=== PATIENT | female | born 1945 | race Caucasian/White ===

== ENCOUNTER 2019-04-11 07:00 | Inpatient (IN) | payer MEDICARE ==
--- NOTE | 2019-04-04 12:44 | HP ---
AMENDED REPORT NOW INCLUDES DESIGNATED COSIGNER HISTORY AND PHYSICAL: DATE OF PROCEDURE: 04/11/19 PROVIDER: Dr. Myra Ozuna.* (DICTATED BY SARA QUEEN) HISTORY OF PRESENT ILLNESS: Mrs. Martinez is a 73-year-old female with right hip pain that has been ongoing for about 4 years. She failed conservative management with physical therapy, multiple intraarticular injections, antiinflammatories, and the use of a cane. She has developed pain, 6/10, severe in the right groin. She has difficulty ambulating more than a block. She would like to proceed with a right total hip arthroplasty to be performed by Dr. Myra Ozuna. PAST MEDICAL HISTORY: 1. Hypertension. 2. Heart disease. 3. Hypercholesterolemia. 4. Diabetes type 2. 5. Depression. 6. Anxiety. 7. Hypothyroidism. 8. Allergic rhinitis. 9. Osteoarthritis. 10. Scoliosis. PAST SURGICAL HISTORY: 1. Hemicolectomy. 2. Pituitary adenoma excision with craniotomy. 3. . 4. Breast lumpectomy. MEDICATIONS: 1. CoQ10 of 100 mg 1 cap p.o. 3 times a week. 2. Crestor 5 mg half a tab p.o. 3 times a week. 3. Fluoxetine 20 mg 1 tab p.o. daily. 4. Levothyroxine 175 mcg 1 tab p.o. q.a.m. 5. Valsartan 160 mg 1 tab p.o. daily. 6. Metformin 500 mg. 7. Vitamin B12. ALLERGIES: PENICILLIN causes hives. EKG GEL causes skin sensitivity. FAMILY HISTORY: Maternal, cancer and heart disease. SOCIAL HISTORY: The patient lives alone at [facility]. 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 She has 12 alcoholic beverages per week. These consist of 8 ounce glasses of white wine. Denies any tobacco or recreational drug use. She is normally active with walking and swimming. She is right hand dominant. REVIEW OF SYSTEMS: The patient denies any fevers, chills, or night sweats. No known anesthesia problems. HEENT: The patient denies any headache or lightheadedness. Cardiothoracic: The patient denies any chest pain or heart palpitations. Pulmonary: The patient denies any shortness of breath, chronic cough. GI: The patient denies any nausea, vomiting, diarrhea, or constipation. : The patient denies any nocturia, urinary frequency, or urgency. MSK: Admits to chronic back pain due to scoliosis. Neuro: Denies any paresthesias or numbness. Integument: Denies any abrasions, rashes, or lesions. PHYSICAL EXAMINATION GENERAL: The patient is alert and oriented x3, appropriate mood and affect, appropriate dressing and hygiene, in no acute distress. VITAL SIGNS: Normocephalic and atraumatic. Hearing and vision grossly intact. PULMONARY: Lungs are clear to auscultation bilaterally with no wheezes, rales, or rhonchi. CARDIO: Regular rate and rhythm. Normal S1 and S2. No appreciable S3 or S4. No murmurs, rubs, or gallops. MSK: Right lower extremity: Inspection of the right hip reveals no erythema or ecchymoses. Skin is warm, dry, and intact. There are no abrasions or open wounds. No palpable masses or lymph nodes. Flexion of the hip to 90 degrees with groin pain, 0 degrees of internal rotation, 20 degrees of external rotation , both with pain. She has a negative log roll. No tenderness to palpation over the greater troch. Full sensation intact to light touch distally and 2+ dorsalis pedis pulse. IMPRESSION: Right hip osteoarthritis, end-stage, severe. PLAN/RECOMMENDATIONS: To the OR for a right total hip arthroplasty to be performed on 04/11/[address] Ozuna. The risks and complications were reviewed with the patient. She will follow up in 10 to 14 days postop for suture removal. SARA QUEEN [id number]/[facility] #: [id number] [facility]OSPITALAlva
[~2019-04-11 07:00] MED LIST: Buffered Lidocaine 1% SYRIN* 1 ML/SYRINGE INTRADERM ONE; Lactated Ringers 1000 ML Bag* 1,000 ML IV SCH; Tranexamic Acid 1,000 MG in NS 0.9% 50 ML* (outpatient use) IV SCH
--- OUTSIDE RECORDS SUMMARY | 2019-04-11 07:04 | XMS REPORT | Continuity of Care Document ---
:1945 External Reference #:[id number] Author Name Jerry Jessie Care Team Providers Name Role Phone Mary Plaza MD Primary Care Physician Unavailable Payers Date Identification Numbers Payment Provider Subscriber Policy Number: [id number] Medicare Frida Martinez PayID: [id number] [address] [place] [address] Policy Number: [id number] [facility] Frida Martinez PayID: [id number] [address] [place] [address] Advance Directives Description No Information Available Problems Date Description Provider Status Onset: 11/27/2016 Type 2 diabetes mellitus Mary Jon, N.P. Active Onset: 11/27/2016 Mild recurrent major depression Mary Jon, N.P. Active Onset: 11/27/2016 Chronic ischemic heart disease Mary Jon, N.P. Active Onset: 11/27/2016 Hypothyroidism Mary Jon, N.P. Active Onset: 11/27/2016 Seasonal allergic rhinitis Mary Jon, N.P. Active Onset: 03/13/2019 Localized, primary osteoarthritis of Myra Ozuna M.D. 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 times a day as needed Aspirin Adult / Active Tablets DR 81mg 1 tab po Unknown Low Strength 0000 qd Co Q 10 / Active Capsules 100mg take one Unknown 0000 cap po three times a week with crestor Crestor / Active Tablets 5mg 1/2 tab Unknown 0000 po three times a week Fluocinonide / Active Cream 0.05% prn Unknown 0000 Fluoxetine HCL / Active Tablets 20mg 1 tab po Unknown 0000 qd Levothyroxine / Active Tablets 175mcg 1 tab po Unknown Sodium 0000 qam Valsartan / Active Tablets 160mg 1 tab po Unknown 0000 qd Metformin HCL / Active Tablets 500mg Unknown 0000 Vitamin B12 / Active Unknown 0000 Prednisone 12/04/ Hx Tablets 10mg 26tabs 5 tabs x2 J20.9 Mary 2016 - day, 4 Dontrell, 03/12/ tabs x N.P. 2019 2day, 3 tabs x 1 day, 2 tabs x1day, 1 tab x 1day Proair HFA 12/04/ Hx Aerosol 108(90Base 1inhal 2 puffs J20.9 Mary 2017 - ) mcg/Act er inhaled Dontrell, 12/04/ every 4 N.P. 2017 to 6 hours as needed Azithromycin 12/01/ Hx Tablets 250mg 6tabs 2 tabs po J20.9 Mary 2017 - qd x1 Dontrell, 03/12/ day, 1 N.P. 2019 tab po qd x 4 days Alavert / Hx Tablets ER 5-120mg prn Unknown Allergy/Sinus 0000 - 12HR 2018 Zetia / Hx Tablets 10mg 1 tab po Unknown 0000 - qd 2015 Immunizations Description No Information Available Vital Signs Date Vital Result Comment 03/13/2019 1:55pm Height 62 inches 5'2" Weight 209.00 lb Heart Rate 74 /min BP Systolic 138 mmHg BP Diastolic 88 mmHg Respiratory Rate 18 /min Body Temperature 98.4 F Pain Level 6 BMI (Body Mass Index) 38.2 kg/m2 12/16/2017 11:22am Heart Rate 70 /min BP Systolic 146 mmHg BP Diastolic 76 mmHg Respiratory Rate 16 /min Body Temperature 98.8 F O2 % BldC Oximetry 96 % 12/02/2017 11:26am Height 62 inches 5'2" Weight 202.00 lb BP Systolic 132 mmHg BP Diastolic 69 mmHg Respiratory Rate 17 /min Pain Level 6 BMI (Body Mass Index) 36.9 kg/m2 12/04/2016 10:40am Weight 203.12 lb Heart Rate 72 /min BP Systolic Sitting 148 mmHg BP Diastolic Sitting 68 mmHg Respiratory Rate 18 /min Body Temperature 98.4 F O2 % BldC Oximetry 95 % 12/01/2016 10:06am Weight 203.00 lb Heart Rate 75 /min BP Systolic Sitting 140 mmHg BP Diastolic Sitting 80 mmHg Respiratory Rate 16 /min Body Temperature 98.7 F O2 % BldC Oximetry 95 % 11/27/2016 8:13am Weight 203.38 lb Heart Rate 94 /min BP Systolic Sitting 140 mmHg BP Diastolic Sitting 72 mmHg Respiratory Rate 16 /min O2 % BldC Oximetry 97 % Results Description No Information Available Procedures Date Code Description Status 02/23/2019 77756 Treadmill Interp/Report Only Completed 02/23/2019 08846 Stress Test Supervsn W/Out I/R Completed 02/17/2019 87105 ECHO Transthoracic, Real-Time 2D With Doppler And Color Completed Flow 02/17/2019 30037 ECHO Transthoracic, Real-Time 2D With Doppler And Color Completed Flow 11/08/2015 53539 ECHO Transthoracic, Real-Time 2D With Doppler And Color Completed Flow Encounters Type Date Location Provider Dx Diagnosis Office Visit 12/16/2017 [facility] Arleen Glasgow, H81.12 Benign paroxysmal 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 unspecified Office Visit 12/01/2016 10:39a Fatemeh Jon, J20.9 Acute bronchitis, Home N.P. unspecified R10.9 Unspecified abdominal pain Office Visit 11/27/2016 8:37a Fatemeh Jon, J20.9 Acute bronchitis, Home N.P. unspecified Plan of Treatment Future Appointment(s):03/31/2019 10:00 am - Myra Ozuna M.D. at [facility]03/13/2019 - Myra Ozuna M.D.M25.551 Pain in right hipNew Xrays:Hip Right 2 Views And Pelvis 40564 - 79579, Ordered: 03/13/19Follow up: Follow up: 7-10 days before vzwzavpP32.11 Unilateral primary osteoarthritis, right hip
--- OUTSIDE RECORDS SUMMARY | 2019-04-11 07:04 | XMS REPORT | Continuity of Care Document ---
:1945 External Reference #:[id number] Author Name Abby Polanco Care Team Providers Name Role Phone Mary Plaza MD Primary Care Physician Unavailable Payers Date Identification Numbers Payment Provider Subscriber Policy Number: [id number] Medicare Frida Martinez PayID: [id number] [address] [place] [address] Policy Number: [id number] [facility] Frida Martinez PayID: [id number] [address] [place] [address] Advance Directives Description No Information Available Problems Active Problems Provider Date Type 2 diabetes mellitus Mary Jon, N.P. Onset: 11/27/2016 Mild recurrent major depression Mary Jon, N.P. Onset: 11/27/2016 Chronic ischemic heart disease Mary Jon, N.P. Onset: 11/27/2016 Hypothyroidism Mary Jon, N.P. Onset: 11/27/2016 Seasonal allergic rhinitis Mary Jon, N.P. Onset: 11/27/2016 Localized, primary osteoarthritis of the Myra Ozuna M.D. 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 Currently consumes alcohol Tobacco Use Start: Unknown End: Patient is a former smoker Unknown Smoking Status Reviewed: 03/31/19 Patient is a former smoker Exercise Type/Frequency Exercises sporadically Allergies, Adverse Reactions, Alerts Active Allergies Reaction Severity Comments Date Penicillins 11/27/2016 EKG Gel 03/31/2019 Medications Active Medications SIG Qnty Indications Ordering Provider Date Co Q 10 take one cap po Unknown 100mg Capsules three times a week with crestor Crestor 1/2 tab po three Unknown 5mg Tablets times a week Fluocinonide prn Unknown 0.05% Cream Fluoxetine HCL 1 tab po qd Unknown 20mg Tablets Levothyroxine Sodium 1 tab po qam Unknown 175mcg Tablets Valsartan 1 tab po qd Unknown 160mg Tablets Metformin HCL Unknown 500mg Tablets Vitamin B12 Unknown History Medications Prednisone 5 tabs x2 day, 26tabs J20.9 Marydebra Jon, 12/04/2016 - 10mg 4 tabs x 2day, N.P. 03/12/2019 Tablets 3 tabs x 1 day, 2 tabs x1day, 1 tab x 1day Proair HFA 2 puffs inhaled 1inhaler J20.9 Mary Jon, 12/04/2016 - every 4 to 6 N.P. 12/04/2016 108(90Base) mcg/Act hours as needed Aerosol Ventolin HFA 2 puffs by 1units J20.9 Mary Jon, 12/04/2016 - mouth four N.P. 03/30/2019 108(90Base) mcg/Act times a day as Aerosol needed Azithromycin 2 tabs po qd x1 6tabs J20.9 Mary Jon, 12/01/2016 - 250mg day, 1 tab po N.P. 03/12/2019 Tablets qd x 4 days Alavert prn Unknown - Allergy/Sinus 03/12/2019 5-120mg Tablets ER 12HR Aspirin Adult Low 1 tab po qd Unknown - Strength 03/30/[address] Harry 1 tab po qd Unknown - 10mg Tablets 11/27/2016 Immunizations Description No Information Available Vital Signs Date Vital Result Comment 03/31/2019 10:30am Height 62 inches 5'2" Weight 210.00 lb Heart Rate 68 /min BP Systolic 140 mmHg BP Diastolic 78 mmHg BMI (Body Mass Index) 38.4 kg/m2 03/13/2019 1:55pm Height 62 inches 5'2" Weight [...] Available Procedures Date Code Description Status 02/23/2019 49658 Treadmill Interp/Report Only Completed 02/23/2019 57049 Stress Test Supervsn W/Out I/R Completed 02/17/2019 66851 ECHO Transthoracic, Real-Time 2D With Doppler And Color Completed Flow 02/17/2019 21640 ECHO Transthoracic, Real-Time 2D With Doppler And Color Completed Flow 11/08/2015 01091 ECHO Transthoracic, Real-Time 2D With Doppler And Color Completed Flow Encounters Type Date Location Provider Dx Diagnosis Office Visit 03/13/2019 Orthopedic Myra Ozuna M25.551 Pain in right hip 1:30p Services Of Fadumo Miller M16.11 Unilateral primary osteoarthritis, right hip Office Visit 12/16/2017 11:33a [facility] Arleen Glasgow, H81.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, 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 unspecified Office Visit 12/01/2016 10:39a [employer] [facility] Mary Paulsonbull, J20.9 Acute bronchitis, Home N.P. unspecified R10.9 Unspecified abdominal pain Office Visit 11/27/2016 8:37a Fatemeh Paulsonbull, J20.9 Acute bronchitis, Home N.P. unspecified Plan of Treatment Future Appointment(s):04/21/2019 10:30 am - Myra Ozuna M.D. at [facility]04/11/2019 11:45 am - Ashkan Ray PA-C at [facility]04/11/2019 11:45 am - SARA Nunez at [facility]04/11/2019 11:45 am - Myra Ozuna M.D. at [facility]03/31/2019 - Myra Ozuna M.D.M25.551 Pain in right hipFollow up:Follow up: 2 weeks after [id number] Unilateral primary osteoarthritis, right hip
[2019-04-11] MEDS ORDERED: Propofol* 10 MG/ML 20 ML BTL ONE (07:16)
[2019-04-11] MEDS ORDERED: Bupivacaine 0.5% SDV PF* 30ML VIAL ONE (07:17)
[2019-04-11] MEDS ORDERED: Lidocaine 2% PF * 5 ML VIAL ONE (07:17)
[2019-04-11] MEDS ORDERED: Propofol* 500 MG/50 ML BTL ONE (07:17)
[2019-04-11] MEDS ORDERED: ROPIVACAINE 5 MG/ML 30 ML BTL (0.5%) ONE (07:17)
[2019-04-11] MEDS ORDERED: Dexmedetomidine* 200 MCG/2 ML 2 ML VIAL ONE (07:18)
[2019-04-11] MEDS ORDERED: Clindamycin 900 MG IVPREMIX(* 900 MG/50 ML SDV IV ONE (07:44)
[2019-04-11] MEDS ORDERED: Buffered Lidocaine 1% SYRIN* 1 ML/SYRINGE INTRADERM ONE (07:44)
[2019-04-11] MEDS ORDERED: KETAMINE HCL* 50 MG/ML 10 ML VIAL ONE (08:06)
[2019-04-11] MEDS ORDERED: Midazolam* 1 MG/ML 2 ML VIAL (2 MG) ONE ×2 (08:06→09:38)
[2019-04-11] MEDS ORDERED: Dexamethasone IV* 4 MG/ML 1 ML (4 MG) ONE (10:30)
[2019-04-11] MEDS ORDERED: EPHEDrine (Pressors)* 50 MG/ML VIAL ONE (10:32)
[2019-04-11] MEDS ORDERED: Acetaminophen TAB* 325 MG PO PRN (11:28)
[2019-04-11] MEDS ORDERED: Naloxone* 0.4 MG/ML 1 ML VIAL IV PRN (11:28)
[2019-04-11] MEDS ORDERED: Ketorolac INJ* 30 MG/ML 1 ML VIAL IV PRN (11:28)
[2019-04-11] MEDS ORDERED: Ondansetron INJ* 2 MG/ML VIAL IV PRN ×2 (11:28→12:23)
[2019-04-11] MEDS ORDERED: oxyCODONE TAB* 5 MG TAB PO PRN (11:28)
[2019-04-11] MEDS ORDERED: Morphine INJ* 2 MG/ML 1 ML SYRINGE (TWO MG - NEW SYRINGE VERSION) IV PRN (12:23)
[2019-04-11] MEDS ORDERED: Polyethylene Glycol 3350* 17 GM PACKET PO PRN (12:23)
[2019-04-11] MEDS ORDERED: Ondansetron TAB* 4 MG PO PRN (12:23)
[2019-04-11] MEDS ORDERED: Magnesium Hydroxide LIQ* 30 ML UDC PO PRN (12:23)
[2019-04-11] MEDS ORDERED: Cyclobenzaprine TAB* 10 MG PO PRN (12:23)
[2019-04-11] MEDS ORDERED: Bisacodyl SUPP* 10 MG SUPP PR PRN (12:23)
[2019-04-11] MEDS ORDERED: diPHENhydraMINE IV* 50 MG/ML 1 ml VIAL (BENADRYL) IV PRN (12:23)
[2019-04-11] MEDS ORDERED: oxyCODONE/Acetamin 5/325 MG* TAB PO PRN (12:23)
[2019-04-11] MEDS ORDERED: Cetirizine* 10 MG TAB PO PRN (12:27)
[2019-04-11] MEDS ORDERED: Acetaminophen TAB* 325 MG ONE (13:09)
[2019-04-11] MEDS ORDERED: Ketorolac INJ* 30 MG/ML 1 ML VIAL ONE (13:09)
[2019-04-11] MEDS ORDERED: HYDROmorphone INJ1* 1 MG/ML SYRINGE ONE (13:21)
[2019-04-11] MEDS: HYDROmorphone INJ1* 1 MG/ML SYRINGE IV PRN ×4 (13:22→13:45)
[2019-04-11] MEDS: Lactated Ringers 1000 ML Bag* 1,000 ML IV SCH (14:25)
[2019-04-11] MEDS ORDERED: Dextrose 50% Syringe 50 ML* 25 GM/50 ML SYRINGE IV PUSH PRN (14:56)
[2019-04-11] MEDS: oxyCODONE TAB* 5 MG TAB PO PRN (15:52)
[2019-04-11] MEDS: Nicotine GUM* 2 MG PO SCH ×4 (16:02→22:22)
--- NOTE | 2019-04-11 16:04 | CONS ---
CC: Dr. Mary Plaza; Dr. Ozuna * CONSULTATION REPORT: DATE OF CONSULT: 04/11/19 TIME OF EVALUATION: 2:20 p.m. PRIMARY CARE PROVIDER: Dr. Mary Plaza. REQUESTING PHYSICIAN: Dr. Ozuna. REASON FOR CONSULTATION: Management of comorbidities. HISTORY OF PRESENT ILLNESS: Mrs. Martinez is a 73-year-old female with a past medical history of coronary artery disease, depression, type 2 diabetes, hyperlipidemia, hypothyroidism, obesity, who was seen by Dr. Ozuna as outpatient with right hip pain that failed conservative measures. She was admitted for an elective right total hip arthroplasty, that was performed by Dr. Ozuna on 04/11/19 without any reported complications. The hospitalist service was consulted to assist with management of comorbidities. She is evaluated soon after her admission to [facility] and at this time, she offers no complaint. She states that her pain is well controlled. There is no chest pain, palpitations, shortness of breath. PAST MEDICAL HISTORY: 1. Type 2 diabetes. 2. Hyperlipidemia. 3. Aortic stenosis. 4. Hypothyroidism. 5. Hypertension. PAST SURGICAL HISTORY: 1. Status post in 1977. 2. Benign breast cyst excision in 1964. 3. Hemicolectomy for polyps in 2012. 4. Pituitary adenoma removal via transsphenoidal approach in 1987. MEDICATION LIST: 1. Aspirin 81 mg p.o. daily. 2. CoQ10 100 mg p.o. daily. 3. Fluoxetine 20 mg p.o. daily. 4. Levocetirizine 5 mg p.o. daily as needed for allergies. 5. Levothyroxine 175 mcg p.o. daily before breakfast. 6. Metformin 500 mg p.o. daily. 7. Rosuvastatin 2.5 mg p.o. 3 times a week. 8. Valsartan 160 mg p.o. daily. ALLERGIES: With PENICILLIN, the patient had hives. FAMILY HISTORY: Reviewed, noncontributory. SOCIAL HISTORY: The patient is a . She has a 21-waeq-pseb history of smoking, but has quit and drinks alcohol socially. REVIEW OF SYSTEMS: A 14-point review of system was performed and all the pertinent negatives are in the HPI. PHYSICAL EXAM: Vital Signs: Temperature 98.4, heart rate is 66, respiratory rate is 15, oxygen saturation is 92% on room air, blood pressure is 147/69. General: The patient is a pleasant obese elderly lady, lying in bed, in no acute distress. HEENT: Pupils are equal. Moist mucous membranes. CVS: Normal S1, S2. Regular rate and rhythm with no systolic murmur. Chest: Breath sounds present bilaterally with no added sounds. Abdomen: Obese, bowel sounds are present. Extremities: The patient has an abductor pillow in place with a clean dressing to her right hip. ASSESSMENT AND PLAN: Mrs. Martinez is a 73-year-old lady with a past medical history of hypertension, hyperlipidemia, type 2 diabetes, depression, anxiety, hypothyroidism, osteoarthritis, scoliosis, aortic stenosis, who is admitted for elective right total hip replacement. 1. Right total hip replacement. Management as per orthopedist. 2. Type 2 diabetes. The patient will have fingersticks a.c. and h.s. with lispro sliding scale and we will resume her metformin . 3. Hypertension, is controlled. We will continue valsartan with holding parameters. 4. Hyperlipidemia. Continue rosuvastatin. 5. DVT prophylaxis. It will be with Eliquis as per orthopedist. 6. Code status is full. TIME SPENT: Approximately 45 minutes was spent with patient interview, medical records, review of physical examination to complete this consultation, more than half of this time was spent [id number] with the patient in coordination of care. [id number]/[facility] #: [id number] DIANA
[2019-04-11] MEDS: oxyCODONE/Acetamin 5/325 MG* TAB PO PRN ×2 (17:31→22:21)
[2019-04-11] MEDS: Clindamycin 600 MG IVPREMIX(* 600 MG/50 ML SDV IV SCH (17:41)
--- NOTE | 2019-04-11 18:26 | OP ---
Operative Report - Blank - Operative Report Date of Operation: 04/11/19 Note: SU SKINNER 1945 Date Of Surgery: 04/11/19 Myra Ozuna MD Manager Gas: Margarita RUIZ did help throughout the procedure with preparation of the hip, wound retraction, manipulation of the hip, and wound closure. Anesthesiologist: Dr. Shields Anesthesia Type: Spinal Preoperative Diagnosis: Right severe degenerative osteoarthritis of the hip Postoperative Diagnosis: As above Procedure Performed: Right Total Hip Arthroplasty Complications: None Specimen: Femoral head and acetabular reamings sent to pathology. Hardware used: This is uncemented Keri total hip arthroplasty hardware for the femur a size 2 accolade II with 127 degree neck femoral component, for the acetabulum a size 46 C trident II tritanium cluster hole shell, a single 15 mm 6.5 screw, for the insert a size 36C MDM cementless liner, a 22.2/36/36C MDM x3 insert, and for the femoral head a size 22.2 + 0 LFIT metal V40 femoral head. Brief history/Indication: SU SKINNER was known in clinic and had a history of severe riht hip pain. She failed conservative treatment with anti- inflammatories, pain pills, intra-articular injections and physical therapy. She elected to undergo right total hip arthroplasty due to continued pain and decreased quality of life. Radiographs showed severe end stage osteoarthritis of the hip with bone on bone contact. Informed consent was obtained from the patient. She understood the risks of surgery included but were not limited to: bleeding, infection, damage to nearby structures, intraoperative fracture, nerve palsy, failure of the hardware, early loosening, stiffness or loss of motion, dislocation, leg length discrepancy, anesthesia complications, stroke, heart attack, blood clot and . She wished to proceed. Intra-Operative findings: Intraoperatively the patient was noted to have severe loss of cartilage of the acetabulum and femoral head. Her muscles were noted to have entensive atrophy and laxity. Description of the Procedure: SU SKINNER was identified in the preanesthesia unit. Her right hip was marked as the correct operative side. Informed consent was signed and placed in the chart. The patient was taken to the operating room and placed under anesthesia without complication. A cohen catheter was placed. The patient was placed on the peg board with all bony prominences well padded. The right lower extremity was prepped and draped in the usual sterile fashion. Preoperative time -out was made to correctly identify the patient, side and site. Appropriate intraoperative antibiotics were given within one hour of incision. A standard posterior incision was made and carried sharply down to the lateral fascia. A new 10 blade was used to make an incision in the fascia in line with the skin incision. A charnley retractor was placed. The piriformis and conjoined tendons were identified and elevated off the posterolateral femur using electrocautery. These were tagged with number 5 Ethibond. Next electrocautery was used to make a posterolateral capsular flap and this was tagged with number 5 Ethibonds. The hip was carefully dislocated. Lesser trochanter to the center of the femoral head was measured at 58 mm. The oscillating saw was used to make the femoral neck cut. The femoral head was carefully removed. The femur was retracted anteriorly and the acetabular retractors were placed. Long-handled knife was used to sharply remove any remaining labrum from the acetabular rim. The acetabulum was sequentially reamed up to a size 45. A bleeding subchondral bone bed was obtained. A trial cup was placed and had excellent fit and stability. A 46C trident II tritanium cluster hole cup was placed and had excellent stability with appropriate anteversion and abduction angle. A single 15 mm screw was placed for extra stability. A size 36C MDM cementless liner was impacted into the acetabular shell. The liner was checked for stability and was stable. Next attention was turned to preparation of the femoral canal. A canal finder was used to enter the proximal femur. The femoral canal was sequentially broached up to a size 2 femoral broach trial. A trial neck and 22.0 + 0 / 36C trial femoral head and MDM insert was chosen. Lesser trochanter to center of the femoral head measurement was satisfactory. The hip was reduced and taken through a range of motion. The hip was stable in all positions with good soft tissue tension and appropriate leg lengths. The hip was dislocated and all trials were removed. The final implant chosen was a size 2 accolade II with 127 degree neck. This stem was impacted into the femoral canal without difficulty. The stem was stable with appropriate anteversion. The femoral head chosen was a 22.2+ 0 with a 22.2/36C MDM X3 insert. The head was impacted onto the femoral neck without difficulty. The final lesser trochanter to center of the femoral head measurement was satisfactory. The hip was reduced and taken through a range of motion. The hip was stable in all positions with good soft tissue tension and appropriate leg lengths. The hip was copiously irrigated with sterile saline. The previously tagged capsule and tendons were repaired to the posterolateral femur through two trochanteric drill holes. The lateral fascia layer was closed using number 1 vicryls. The rest of the incision was closed in a layered fashion using 0 and 2-0 vicryls. The skin was closed using 3-0 monocryl suture and Dermabond. Sterile adaptic, 4x4s and paper tape was used to cover the incision. The patients anesthesia was reversed without difficulty. She was taken to the PACU in stable condition. Intended weight-bearing will be as tolerated with posterior hip precautions.
[2019-04-11] MEDS: Insulin LISPRO* 1 UNITS UNIT SUBCUT SCH ×2 (18:29→22:22)
[2019-04-11] MEDS: Docusate CAP* 100 MG PO SCH (22:20)
[2019-04-11] MEDS: Magnesium Hydroxide LIQ* 30 ML UDC PO SCH (22:21)
[2019-04-11] MEDS: Acetaminophen TAB* 325 MG PO SCH (22:42)
[2019-04-12] MEDS: Nicotine GUM* 2 MG PO SCH ×12 (00:12→21:43)
[2019-04-12] MEDS: oxyCODONE TAB* 5 MG TAB PO PRN ×4 (00:31→19:31)
[2019-04-12] MEDS: Lactated Ringers 1000 ML Bag* 1,000 ML IV SCH (01:59)
[2019-04-12] MEDS: Clindamycin 600 MG IVPREMIX(* 600 MG/50 ML SDV IV SCH ×2 (02:00→11:23)
[2019-04-12] MEDS: oxyCODONE/Acetamin 5/325 MG* TAB PO PRN ×3 (03:17→21:35)
[2019-04-12] MEDS: Acetaminophen TAB* 325 MG PO SCH ×3 (05:38→21:44)
[2019-04-12 05:42] LABS: Hematocrit 34 % (35-47); Hemoglobin 11.2 g/dL (12.0-16.0); Mean Platelet Volume 7.5 fL (7.4-10.4); Platelet Count 189 10^3/uL (150-450)
[2019-04-12 06:03] LABS: BUN/Creatinine Ratio 16.4 (8-20); Calcium 8.9 mg/dL (8.6-10.3); EGFR African American 104.4 (>60); EGFR Non-African American 86.3 (>60); Potassium 4.2 mmol/L (3.5-5.0)
[2019-04-12] MEDS: Levothyroxine TAB* 175 MCG TAB PO SCH (06:25)
[2019-04-12] MEDS: Docusate CAP* 100 MG PO SCH ×2 (08:02→21:34)
[2019-04-12] MEDS: metFORMIN* 500 MG TAB PO SCH (08:03)
[2019-04-12] MEDS: FLUoxetine CAP* 20 MG PO SCH (08:03)
[2019-04-12] MEDS: Valsartan TAB* 160 MG PO SCH (08:03)
[2019-04-12] MEDS: Apixaban* 2.5 MG TAB PO SCH ×2 (08:03→21:34)
[2019-04-12] MEDS: Insulin LISPRO* 1 UNITS UNIT SUBCUT SCH ×4 (08:04→21:40)
[2019-04-12] MEDS: Magnesium Hydroxide LIQ* 30 ML UDC PO SCH ×2 (08:04→21:33)
[2019-04-12] MEDS ORDERED: CMCS:Rosuvastatin (NF) 5 MG TAB PO SCH (09:00)
[2019-04-12] MEDS ORDERED: Valsartan TAB* 160 MG PO SCH (09:00)
--- NOTE | 2019-04-12 10:36 | PN ---
Progress Note - Progress Note Date of Service: 04/12/19 SOAP: Subjective: []Pt seen at bedside POD 1 sp RTH. She feels well, hip pain is sore but tolerable. Denies CP, SOB, dizziness, nausea Objective: []General: Appears well, NAD RLE: Hip dressing CDI, thigh soft, DF/PF intact, sensation intact to light touch , DP2+ Calves supple and nontender without erythema, edema or palpable cords Assessment: []POD 1 SP RTH Plan: []WBAT PT/OT. Posterior hip precautions eliquis 2.5 mg po BID x 30 days post op Lives at [facility], Plan is for PM or T house, likely tomorrow Vital Signs Temp 98.3 F 04/12/19 07:21 Pulse 67 04/12/19 07:21 Resp 16 04/12/19 10:35 BP 142/69 04/12/19 07:21 Pulse Ox 97 04/12/19 08:00 Intake & Output 04/11/19 04/12/19 04/12/19 18:59 06:59 18:59 Intake Total 2225 1120 470 Output Total 500 1005 75 Balance 1725 115 395 Weight 212 lb Intake: IV Fluids 100 CLINDAMYCIN 900MG IN 50ML 50 NS TXA 1GM IN 50ML NS 50 Oral 2125 1120 470 Output: Urine 75 Reddy 500 1005 Laboratory Last Values Hgb 11.2 g/dL (12.0-16.0) L 04/12/19 04:58 Hct 34 % (35-47) L 04/12/19 04:58 Plt Count 189 10^3/uL (150-450) 04/12/19 04:58 MPV 7.5 fL (7.4-10.4) 04/12/19 04:58 Sodium 135 mmol/L (135-145) 04/12/19 04:58 Potassium 4.2 mmol/L (3.5-5.0) 04/12/19 04:58 Chloride 102 mmol/L (101-111) 04/12/19 04:58 Carbon Dioxide 27 mmol/L (22-32) 04/12/19 04:58 Anion Gap 6 mmol/L (2-11) 04/12/19 04:58 BUN 11 mg/dL (6-24) 04/12/19 04:58 Creatinine 0.67 mg/dL (0.51-0.95) 04/12/19 04:58 Est GFR ( Amer) 104.4 (>60) 04/12/19 04:58 Est GFR (Non-Af Amer) 86.3 (>60) 04/12/19 04:58 BUN/Creatinine Ratio 16.4 (8-20) 04/12/19 04:58 Glucose 156 mg/dL (70-100) H 04/12/19 04:58 POC Glucose (mg/dL) 147 mg/dL (70-100) H 04/12/19 07:50 Calcium 8.9 mg/dL (8.6-10.3) 04/12/19 04:58
[2019-04-12] MEDS: traMADol TAB* 50 MG PO PRN (13:16)
--- NOTE | 2019-04-12 14:37 | PN ---
Subjective Date of Service: 04/12/19 Interval History: HOSPITALIST PROGRESS NOTE Patient seen and examined at bedside. Care reviewed and d/w Mary Bateman RN. She feels well today; pain is well controlled, denies N/V. Able to work with PT today with no issues. Family History: Unchanged from Admission Social History: Unchanged from Admission Past Medical History: Unchanged from Admission Objective Active Medications: Acetaminophen (Tylenol Tab*) 975 mg PO Q8HR [facility] Last Admin: 04/12/19 13:12 Dose: Not Given Apixaban (Eliquis*) 2.5 mg PO BID [facility] Last Admin: 04/12/19 08:03 Dose: 2.5 mg Bisacodyl (Dulcolax Supp*) 10 mg OR DAILY PRN PRN Reason: constipation Cetirizine HCl (Zyrtec*) 10 mg PO DAILY PRN PRN Reason: Allergy Symptoms Cyclobenzaprine HCl (Flexeril Tab*) 10 mg PO TID PRN PRN Reason: SPASMS Dextrose (D50w Syringe 50 Ml*) 12.5 gm IV PUSH .FOR FS < 60 - SS PRN PRN Reason: FS < 60 Diphenhydramine HCl (Benadryl Iv*) 12.5 mg IV Q6H PRN PRN Reason: PRURITIS Docusate Sodium (Colace Cap*) 100 mg PO BID [facility] Last Admin: 04/12/19 08:02 Dose: 100 mg Fluoxetine HCl (Prozac Cap*) 40 mg PO QAM [facility] Last Admin: 04/12/19 08:03 Dose: 40 mg Lactated Ringer's (Lactated Ringers 1000 Ml Bag*) 1,000 mls @ 100 mls/hr IV PER RATE [facility] Last Admin: 04/12/19 01:59 Dose: 100 mls/hr Insulin Human Lispro (Humalog*) 0 units SUBCUT ACHS [facility]; Protocol Last Admin: 04/12/19 13:10 Dose: 2 unit Lactulose (Lactulose*) 30 ml PO Q6H PRN PRN Reason: constipation Levothyroxine Sodium (Synthroid Tab*) 175 mcg PO QAM@0600 [facility] Last Admin: 04/12/19 06:25 Dose: 175 mcg Magnesium Hydroxide (Milk Of Magnesia Liq*) 30 ml PO BID [facility] Last Admin: 04/12/19 08:04 Dose: 30 ml Magnesium Hydroxide (Milk Of Magnesia Liq*) 30 ml PO Q6H PRN PRN Reason: constipation Metformin HCl (Glucophage*) 500 mg PO [facility] Last Admin: 04/12/19 08:03 Dose: 500 mg Morphine Sulfate (Morphine Inj (Syringe))*) 2 mg IV Q2H PRN PRN Reason: PAIN Nicotine Polacrilex (Nicotine Gum*) 2 mg PO Q2H [facility] Last Admin: 04/12/19 13:12 Dose: Not Given Ondansetron HCl (Zofran Inj*) 4 mg IV Q6H PRN PRN Reason: nausea Ondansetron HCl (Zofran Tab*) 4 mg PO Q6H PRN PRN Reason: NAUSEA Oxycodone HCl (Roxycodone Tab*) 10 mg PO Q4H PRN PRN Reason: SEVERE PAIN Last Admin: 04/12/19 10:35 Dose: 10 mg Oxycodone/Acetaminophen (Percocet 5/325 Tab*) 1 tab PO Q4H PRN PRN Reason: PAIN Oxycodone/Acetaminophen (Percocet 5/325 Tab*) 2 tab PO Q4H PRN PRN Reason: PAIN Last Admin: 04/12/19 08:04 Dose: 2 tab Polyethylene Glycol/Electrolytes (Miralax*) 17 gm PO DAILY PRN PRN Reason: Constipation Rosuvastatin Calcium (Crestor (Nf)) [facility] Last Admin: 04/12/19 08:09 Dose: 2.5 mg Tramadol HCl (Ultram*) 50 mg PO Q6H PRN PRN Reason: PAIN Last Admin: 04/12/19 13:16 Dose: 50 mg Valsartan (Diovan Tab*) 160 mg PO [facility] Last Admin: 04/12/19 08:03 Dose: 160 mg Vital Signs - 8 hr 04/12/19 04/12/19 04/12/19 07:21 08:00 08:04 Temperature 98.3 F Pulse Rate 67 Respiratory 16 16 16 Rate Blood Pressure 142/69 (mmHg) O2 Sat by Pulse 97 97 Oximetry 04/12/19 04/12/19 04/12/19 10:35 11:45 13:16 Temperature 98.3 F Pulse Rate 63 Respiratory 16 16 16 Rate Blood Pressure 127/64 (mmHg) O2 Sat by Pulse 96 Oximetry Oxygen Devices in Use Now: None Appearance: Elderly obese lady sitting up in a recliner in NAD Eyes: No Scleral Icterus Ears/Nose/Mouth/Throat: Mucous Membranes Moist Neck: Trachea Midline Respiratory: Symmetrical Chest Expansion and Respiratory Effort, Clear to Auscultation Cardiovascular: RRR - Normal S1 and S2 with systolic murmur Extremities: - - Right hip CDI, calves are soft Neurological: Alert and Oriented x 3, NL Muscle Strength and Tone, - - sensation intact Result Diagrams: 04/12/19 04:58 04/12/19 04:58 Assess/Plan/Problems-Billing Assessment: Mrs Martinez is a 73yo F with PMH of type 2 DM, HLD, aortic stenosis, hypothyroidism, HTN; admitted for elective right ESHA. - Patient Problems (1) H/O total hip arthroplasty Comment: - Management as per Ortho. (2) HTN (hypertension) Comment: - Controlled. - Continue Valsartan. (3) Diabetes Comment: - Controlled - glucose <180. - Continue Metformin and Lispro SS. (4) HLD (hyperlipidemia) Comment: - Continue Rosuvastatin. (5) DVT prophylaxis Comment: - Apixaban as per Ortho. (6) Full code status Status and Disposition: Hospitalist service will continue to follow.
[2019-04-13] MEDS: oxyCODONE TAB* 5 MG TAB PO PRN ×2 (00:23→08:28)
[2019-04-13] MEDS: traMADol TAB* 50 MG PO PRN (00:23)
[2019-04-13] MEDS: Nicotine GUM* 2 MG PO SCH ×8 (01:09→12:35)
[2019-04-13] MEDS: Acetaminophen TAB* 325 MG PO SCH ×2 (05:19→12:43)
[2019-04-13] MEDS: oxyCODONE/Acetamin 5/325 MG* TAB PO PRN ×2 (05:28→12:35)
[2019-04-13] MEDS: Levothyroxine TAB* 175 MCG TAB PO SCH (05:29)
[2019-04-13 06:38] LABS: Hematocrit 34 % (35-47); Hemoglobin 11.3 g/dL (12.0-16.0); Mean Platelet Volume 7.1 fL (7.4-10.4); Platelet Count 184 10^3/uL (150-450)
[2019-04-13] MEDS: Insulin LISPRO* 1 UNITS UNIT SUBCUT SCH ×2 (07:19→12:08)
[2019-04-13] MEDS: metFORMIN* 500 MG TAB PO SCH (08:28)
[2019-04-13] MEDS: FLUoxetine CAP* 20 MG PO SCH (08:28)
[2019-04-13] MEDS: Apixaban* 2.5 MG TAB PO SCH (08:28)
[2019-04-13] MEDS: Valsartan TAB* 160 MG PO SCH (08:28)
[2019-04-13] MEDS: Magnesium Hydroxide LIQ* 30 ML UDC PO SCH (08:29)
[2019-04-13] MEDS: Docusate CAP* 100 MG PO SCH (08:29)
--- NOTE | 2019-04-13 10:25 | DS ---
Orthopedic Discharge Summary - Discharge Summary Discharge to [facility] 04/13/19 in stable condition Date of Admission:04/11/19 Date of Discharge: 04/13/19 Date of Surgery: 04/11/19 Attending Orthopedic Provider: Dr Ozuna Pre-operative Diagnosis: right hip osteoarthritis Operative Procedure: right total hip arhroplasty Disposition of Patient: [facility] [place] Condition of Patient: stable History: SU SKINNER is a 73 year old F with years of increasingly severe right hip pain. Patient has failed conservative management and has elected to undergo a right total hip replacement Hospital Course: SU was admitted to [facility] on 04/11/19. Patient underwent a right total hip replacement without complication followed by a brief recovery in PACU and transfer to the Short Stay Surgical Unit in stable condition. Our hospitalist service, physical therapy and occupational therapy also participated in this patients care. Post-op day 1: patient was alert and in no acute distress. Dressing was clean, dry and intact. Operative extremity dorsiflexion and plantarflexion intact, sensation intact to light touch distally, DP2+. Post-op day two: dressing was changed, incision was clean , dry and intact. Patient was deemed to be medically and orthopedically stable for discharge to [facility]. Physical therapy goals were met. Home Medications Medication Instructions Recorded Confirmed Type Fluoxetine HCl 40 mg PO QAM 06/15/14 04/11/19 History metFORMIN* [Glucophage 500 MG TAB 500 mg PO QAM 05/14/17 04/11/19 History *] LevoCETirizine TAB (NF) [Xyzal TAB 5 mg PO DAILY PRN 05/18/17 04/11/19 History (NF)] Cyanocobalamin TAB* [Vitamin B12 2,000 mcg PO QAM 03/31/19 04/11/19 History TAB*] Fluocinonide 0.05% CREAM(NF) 1 applic TOPICAL TID PRN 03/31/19 04/11/19 History Levothyroxine TAB* [Synthroid TAB*] 175 mcg PO QAM 03/31/19 04/11/19 History Nicotine Polacrilex [Nicorette] 2 mg BC Q2H 03/31/19 04/11/19 History Rosuvastatin Calcium 2.5 mg PO SEE INSTRUCTIONS 03/31/19 04/11/19 History Ubidecarenone [Coq10] 200 mg PO SEE INSTRUCTIONS 03/31/19 04/11/19 History Valsartan TAB* [Diovan TAB*] 160 mg PO QAM 03/31/19 04/11/19 History Acetaminophen TAB* [Tylenol TAB*] 975 mg PO Q8HR tab MDD 4000 mg 04/13/19 Rx Apixaban* [Eliquis*] 2.5 mg PO BID 30 Days #60 tab 04/13/19 Rx Aspirin HOLD while on eliquis 325 - 500 mg PO BID PRN #0 04/13/19 04/11/19 Rx Docusate CAP* [Colace Cap*] 100 mg PO BID PRN #90 cap 04/13/19 Rx oxyCODONE/Acetamin 5/325 MG* 1 tab PO Q4H PRN tab MDD 10 04/13/19 Rx [Percocet 5/325 TAB*] oxyCODONE/Acetamin 5/325 MG* 2 tab PO Q4H PRN #70 tab MDD 10 04/13/19 Rx [Percocet 5/325 TAB*] Discharge Instructions following Orthopedic Surgery: Activity: * Weight Bearing as tolerated * Continue physical therapy and occupational therapy exercises as shown while at T house/ once back to independent living Hip replacements: Continue Hip Precautions- do not cross legs or bend greater than 90 degrees/squat Wound care: * OK to shower on post-op day 3, no bathing, swimming, or submerging wound. * Use gentle soap, pat dry. Cover with gauze, JONATAN wrap or tape. * nurse to do wound checks. Call Orthopedic office for: * Increased drainage * Redness * Increased pain * Fever Go to ER with shortness of breath or chest pain. Diet: * Regular diet * Increase fluids and fiber to prevent constipation. * Continue to use stool softeners, call office if no bowel motion within 48 hours. Medications See Home Medication List in your packet for medications that you should take after discharge. DVT Prophylaxis: Eliquis Dosin.5 mg, 1 tab every 12 hours x 30 days. this medication increases bleeding tendency Please hold your aspirin while you are on eliquis. May resume using aspirin after the 30 days of eliquis but taking them together will further thin the blood Pain Control: Percocet Dosin/325 mg 1-2 tabs by mouth every 4-6 hours as needed for pain. Maximum of 10 tabs per day. Hold for sedation, wean off as soon as pain allows Please note that Percocet contains Tylenol (acetaminophen). Maximum daily dose of Tylenol is 4000 mg from all sources. Antibiotics are required prior to any dental work. FOLLOW UP: Follow up with [Laith ] Within 10-14 days, call for appointment Please call our office with any questions or concerns ([phone]) RX to [email or web address]
[2019-04-13 12:10] VITALS: BP 120/64
== END 2019-04-13 13:09 | DRG 470 ==
LOC: AA 07:00 → SSU 12:23
PROVIDERS: ADMIT Orthopaedic Surgery Adult Reconstructive Orthopaedic Surgery; ATTEND Orthopaedic Surgery Adult Reconstructive Orthopaedic Surgery
PROC: 0SR901A Replacement of Right Hip Joint with Metal Synthetic Substitute, Uncemented, Open Approach (ICD-10-PCS; principal; 2019-04-11 09:15)
DX: M16.11 Unilateral primary osteoarthritis, right hip (principal); I11.9 Hypertensive heart disease without heart failure; E78.00 Pure hypercholesterolemia, unspecified; E11.9 Type 2 diabetes mellitus without complications; F32.9 Major depressive disorder, single episode, unspecified; F41.9 Anxiety disorder, unspecified; M41.9 Scoliosis, unspecified; J30.9 Allergic rhinitis, unspecified; I25.9 Chronic ischemic heart disease, unspecified; E03.9 Hypothyroidism, unspecified; G47.33 Obstructive sleep apnea (adult) (pediatric); E78.5 Hyperlipidemia, unspecified; E66.9 Obesity, unspecified; I08.3 Combined rheumatic disorders of mitral, aortic and tricuspid valves; Z90.49 Acquired absence of other specified parts of digestive tract; Z88.0 Allergy status to penicillin; Z88.8 Allergy status to other drugs, medicaments and biological substances; Z72.89 Other problems related to lifestyle; Z82.49 Family history of ischemic heart disease and other diseases of the circulatory system; Z86.010 Personal history of colon polyps; Z80.0 Family history of malignant neoplasm of digestive organs; Z87.891 Personal history of nicotine dependence; Z68.38 Body mass index [BMI] 38.0-38.9, adult; Z79.82 Long term (current) use of aspirin; Z79.84 Long term (current) use of oral hypoglycemic drugs
CPT/HCPCS: 36415; 72170; 80048; 85014; 85018; 85049; 88304; 88311; A9270-GY; G8978-GP-CL; G8979-GP-CI; G8987-GO-CJ; G8988-GO-CH; J1100; J1170; J1885; J2250; J2704; J2795; J3490